=== PATIENT | female | born 1975 | race Caucasian/White ===

== ENCOUNTER → 2017-03-15 | Outpatient (CLI) | payer MEDICARE ==
[~2017-03-15] MED LIST: FLAGYL500 MG PO; LYRICA150 MG PO; NORCO 7.5-3251 EACH PO; WELLBUTRIN XL300 MG PO; ZYVOX600 MG PO
== END ==
LOC: OPSV 15:00
DX: L02.416 Cutaneous abscess of left lower limb (principal); B95.62 Methicillin resistant Staphylococcus aureus infection as the cause of diseases classified elsewhere
CPT/HCPCS: G0463

== ENCOUNTER → 2017-03-17 | Outpatient (CLI) | payer MEDICARE | LOC: OPSV 14:56 | DX: L02.416 Cutaneous abscess of left lower limb (principal); B95.62 Methicillin resistant Staphylococcus aureus infection as the cause of diseases classified elsewhere | CPT/HCPCS: G0463 ==

== ENCOUNTER 2020-10-23 13:22 | Emergency (ER) | payer OTHER ==
[~2020-10-23 13:22] MED LIST changes: +ATROVENT HFA12.9 GM INH; +BENTYL 20MG TAB20 MG PO; +CYCLOBENZAPRINE10 MG PO; +IPRATROPIU0.2 MG/1 M INH; +MACROBID 100 M100 MG PO; +PREDNISONE20 MG PO; +PROVENTIL HFA6.7 GM INH; +ROBITUSSIN DM UD5 ML PO; +TESSALON PERLE100 MG PO; +VENTOLIN HFA 66.7 GM INH; +ZOFRAN ODT 4 MG4 MG SL; +ZOFRAN4 MG PO
[2020-10-23] MEDS ORDERED: IBUPROFEN800 MG PO (14:32)
== END 2020-10-23 15:16 | disposition home or self-care (01) ==
LOC: ER1 13:22
DX: S93.402A Sprain of unspecified ligament of left ankle, initial encounter (principal); Z88.0 Allergy status to penicillin; F17.210 Nicotine dependence, cigarettes, uncomplicated; X50.9XXA Other and unspecified overexertion or strenuous movements or postures, initial encounter
CPT/HCPCS: 73610; 99283